=== PATIENT | male | born 1970 | race African-American/Black ===

== ENCOUNTER 2019-04-05 08:20 | Emergency (ER) | payer OTHER ==
[~2019-04-05] VITALS: Ht 177.8 cm; Wt 95.5 kg
[2019-04-05] MEDS ORDERED: TRIA37.53 PO (08:29)
[2019-04-05] MEDS ORDERED: IBUPROFEN 800 MG TAB PO ONE (09:30)
[2019-04-05 10:22] VITALS: BP 150/92
== END 2019-04-05 10:29 | disposition home or self-care (01) ==
LOC: M ED 08:20
DX: G44.209 Tension-type headache, unspecified, not intractable (principal); I10 Essential (primary) hypertension; Z79.899 Other long term (current) drug therapy